=== PATIENT | male | born 1990 | race Caucasian/White ===

== ENCOUNTER → 2019-08-27 07:38 | Outpatient (BNVA) | payer MEDICAID, SELFPAY | PROVIDERS: Visit Provider Psychiatry & Neurology Psychiatry | DX: F31.9 Bipolar disorder, unspecified (principal); F17.200 Nicotine dependence, unspecified, uncomplicated; F10.21 Alcohol dependence, in remission; F15.21 Other stimulant dependence, in remission; F12.21 Cannabis dependence, in remission; F41.1 Generalized anxiety disorder | CPT/HCPCS: 99213 ==

== ENCOUNTER 2019-08-31 13:00 | Emergency (ER) | payer MEDICAID, SELFPAY ==
[2019-08-31 13:07] VITALS: BMI 277.5
[2019-08-31 13:09] VITALS: BP 119/82; PULSE 81; RESP 16; TEMP 36.6; O2SAT 98
--- NOTE | 2019-08-31 13:17 | ED_ITS ---
HPI - Dental/Oral General: Chief complaint: Dental/Oral Stated complaint: dental pain Time Seen by Provider: 08/31/19 13:03 History of Present Illness: HPI Narrative: Dental pain times few days MD Complaint: tooth pain Teeth map: 1. Onset (ago): day(s) Duration: constant Severity: moderate Associated symptoms: Denies fever(s) Review of Systems Const: Denies: fever(s), chills or body aches Eyes: Denies: change in vision or blurry vision ENMT: Reports: other (Dental pain); Denies: throat pain or nasal congestion Card: Denies: chest pain or dyspnea on exertion Resp: Denies: dyspnea, productive cough or non-productive cough GI: Denies: abdominal pain, nausea or vomiting : Denies: difficulty urinating Musc: Denies: extremity pain Skin/Breast: Denies: rash Neuro: Denies: headache(s) Psych: Denies: anxiety or depression Hilario/Lymph: Denies: easy bruising PFSH ED PFSH: Social History (Updated 07/30/19 @ 13:25 by Henry Rodriguez LPN) Smoking and tobacco status: current every day smoker cigarettes Packs smoked per day: 1 Years cigarettes smoked: 13 Quit status (tobacco): considering quitting Second hand smoke exposure: No Smoking risk assessment/counseling performed?: No Current gender identity: Male Physical Exam Const: COMMON NORMALS: no acute distress, average body habitus and patient oriented x3 HENMT: COMMON NORMALS: normocephalic HEAD & SCALP: normal to inspection and normocephalic FACE & SINUS: normal facial exam TEETH & GINGIVA IMAGES: 1. Eye: COMMON NORMALS: conjunctivae normal GENERAL EYE: appearance normal, both eyes and all related structures CONJUNCTIVA: Yes conjunctivae normal Neck/C-Spine: COMMON NORMALS: no JVD Chest: COMMONS NORMALS: normal inspection of the chest Resp: COMMON NORMALS: normal respiratory effort and clear to auscultation bilaterally AUSCULTATION: clear to auscultation bilaterally Cardio: COMMON NORMALS: no JVD, regular rate and regular rhythm RATE: regular rate RHYTHM: regular rhythm GI: COMMON NORMALS: Normal to inspection, nondistended, normoactive bowel sounds present Extremity: COMMON NORMALS: normal to inspection and full ROM Neuro: COMMON NORMALS: patient oriented x3 Course Vital Signs: Vital signs: Vital Signs Temperature 97.9 F 08/31/19 13:09 Pulse Rate 81 08/31/19 13:09 Respiratory Rate 16 08/31/19 13:09 Blood Pressure 119/82 08/31/19 13:09 Pulse Oximetry 98 08/31/19 13:09 Discharge Plan Discharge Prescriptions: No Action Invega Sustenna 117 mg/0.75 mL syringe 117 mg IM Q30D Qty: 0.75 RF: 2 mirtazapine [Remeron] 15 mg tablet 15 mg PO .HS Qty: 30 RF: 2 paliperidone [Invega] 3 mg tablet extended release 24hr 3 mg PO QAM Qty: 30 RF: 2 Coding Level of Care Code ED Cell Support Operator for Elías Arnold
[2019-08-31 13:26] VITALS: BP 125/85; PULSE 83; RESP 17; O2SAT 97
== END 2019-08-31 13:26 | disposition home or self-care (01) ==
LOC: ER 13:27
PROVIDERS: Emergency Provider Nurse Practitioner Family
DX: K08.89 Other specified disorders of teeth and supporting structures (principal); F17.210 Nicotine dependence, cigarettes, uncomplicated
CPT/HCPCS: 12345; 99281

== ENCOUNTER 2019-12-24 05:38 | Emergency (ER) | payer MEDICAID, SELFPAY ==
[2019-12-24 05:39] VITALS: BP 125/82; PULSE 105; RESP 24; TEMP 36.7; O2SAT 93; BMI 28.5
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
--- NOTE | 2019-12-24 06:22 | PC.NURSE ---
agree with this assessment
== END 2019-12-24 06:23 ==
PROVIDERS: Emergency Provider Family Medicine
DX: R46.89 Other symptoms and signs involving appearance and behavior (principal); K02.9 Dental caries, unspecified; F15.90 Other stimulant use, unspecified, uncomplicated; F17.210 Nicotine dependence, cigarettes, uncomplicated
CPT/HCPCS: 12345; 99281

== ENCOUNTER 2020-03-01 16:38 | Inpatient (IN) | payer MEDICAID, SELFPAY ==
[2020-03-01] VITALS (34 sets, daily range): BP systolic 107–142; BP diastolic 59–101; PULSE 59–97; RESP 12–22; TEMP 36.7; O2SAT 96–100; BMI 21.7
--- NOTE | 2020-03-01 16:47 | XRR_ITS ---
PROCEDURE INFORMATION: Exam: XR Chest, 1 View Exam date and time: 03/01/2020 4:57 PM Age: 29 years old Clinical indication: Device placement; Ett placement (vent status); Patient HX: Post et tube. 4 images; Additional info: Dyspnea/cough TECHNIQUE: Imaging protocol: XR of the chest Views: 1 view. COMPARISON: CR Chest 1 [place] [id number] 10/26/2018 9:43 PM FINDINGS: Tubes, catheters and devices: A nasogastric tube is present in the projection of the stomach. Lungs: Unremarkable. No consolidation. Pleural space: Unremarkable. No pleural effusion. No pneumothorax. Heart/Mediastinum: Unremarkable. No cardiomegaly. Bones/joints: Unremarkable. XR/XR chest 1V portable [id number] IMPRESSION: 1. Satisfactory position of the nasogastric tube. 2. No significant cardiopulmonary abnormality.
--- NOTE | 2020-03-01 16:47 | ECG_ITS ---
[facility] Test Date: 2020-03-01 Pat Name: Rubens Gregg Department: Room: Gender: Male Director Of Infection Control: : 1990 Requested By: Lior Joaquin Order Number: [id number] Pat MD: Bettye Mcduffie M.D. Measurements Intervals [place] Rate: 46 P: MO: QRS: 74 QRSD: 91 T: 62 QT: 439 QTc: 387 Interpretive Statements Ectopic atrial rhythm with intermittent sinus beats Compared to ECG 10/26/2018 21:13:55 Sinus rhythm no longer present Sinus arrhythmia no longer present Electronically Signed On 03-02-2020 23:39:55 CPO by Bettye Mcduffie M.D. [email or web address]
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
[2020-03-01 17:14] LABS: ABG PCO2 37.7 mmHg (35-45); ABG PH Result 7.36 (7.35-7.45); PO2 ABG 44.3 mmHg (80.0-100.0)
[2020-03-01 17:15] LABS: Arterial Blood Gas Hematocrit 43.4 % (42-52); Base Excess ABG -3.5 mmol/L (-2.0-2.0); Blood Gas Operator Identificat glc; Blood Gas Sample Site Radial, right; Carboxyhemoglobin 2.3 %THgb (0.4-20.1); HCO3 ABG 21.5 mmol/L (22-26); HGB O2 Sat 78.6 % (95-100); Oxygen Saturation ABG 81.1; Potassium Level - ABG 3.7 mmol/L (3.5-5.0); Total Hemoglobin 14.2 g/dL (14-18)
[2020-03-01 17:16] LABS: Blood Gas Allen Test Pos; Blood Gas Sample Type Arterial; Ionized Calcium Level - ABG 1.2 mmol/L (1.1-1.4); Methemoglobin 0.8 % (0.4-1.5); Oxygen Device VENT
[2020-03-01 17:27] LABS: Basophils % 0.4 %; Eosinophils # 0.1 10^3/uL (0.0-0.8); Eosinophils % 1.1 %; Lymphocytes # 3.6 10^3/uL (0.8-4.8); Lymphocytes % 42.3 %; Mean Corpuscular HGB Conc 32.6 g/dL (30.0-36.0); Mean Corpuscular Hemoglobin 30.5 pg (28.0-34.0); Mean Corpuscular Volume 93.7 fL (80-94); Mean Platelet Volume 10.1 fL (7.4-10.4); Monocytes # 0.6 10^3/uL (0.2-0.9); Monocytes % 6.7 %; Neutrophils # 4.16 10^3/uL (1.8-7.7); Neutrophils % 49.3 %; Nucleated Red Blood Cells % 0 %; Platelet Count 338 10^3/cmm (130-400); Red Blood Count 4.59 10^6/uL (4.1-5.3); Red Cell Distribution Width 13.4 % (12.1-15.1); White Blood Count 8.4 10^3/uL (4.0-10.0)
[2020-03-01] MEDS: succinylcholine 20 mg/mL SDV 10mL 100 MG IVP (17:27)
[2020-03-01] MEDS: vecuronium 10 mg SDV IVP ×2 (17:27→19:05)
[2020-03-01] MEDS: dextrose 50% syringe 50 mL (17:29)
[2020-03-01] MEDS: propofol 1,000 MG/100 ML INJ 8.7 MG IV (17:29)
[2020-03-01 17:41] LABS: Ketone (Acetest) Serum Negative (Negative)
[2020-03-01 18:01] LABS: Alanine Aminotransferase 19 U/L (0-41); Albumin Level 4.5 g/dL (3.5-5.2); Alcohol Level 45 mg/dL (0-10); Alkaline Phosphatase 63 IU/L (40-130); Blood Urea Nitrogen 8 mg/dL (6-20); Calcium 8.5 mg/dL (8.5-10.5); Carbon Dioxide 22 mmol/L (22-29); Chloride 104 mmol/L (98-107); Creatine Phosphokinase 104 U/L (39-308); Globulin 2.3 g/dL (1.3-4.6); Glomerular Filtration Rate 161.6 mL/min (90-130); Glucose 90 mg/dL (65-115); Osmolality Calculated 286 mOsm/kg (285-295); Sodium 139 mmol/L (136-145); Total Bilirubin 0.2 mg/dL (0.15-1.2); Total Protein 6.8 g/dL (6.6-8.7)
[2020-03-01 18:09] LABS: Creatinine Clr Calc Pharmacy 197.7238
[2020-03-01 18:10] LABS: Acetaminophen < 5.0 ug/mL (10-30); Salicylate < 0.3 mg/dL (3-10)
[2020-03-01 18:24] LABS: Anion Gap 16.5 (5-19); Aspartate Amino Transferase 20 U/L (0-40); Potassium 3.5 mmol/L (3.5-5.1)
[2020-03-01] MEDS: fentaNYL 50 mcg/mL INJ 2mL IVP (18:30)
[2020-03-01] MEDS: vecuronium 10 mg SDV 2 MG IVP (19:03)
[2020-03-01 19:11] LABS: Reflex Lactate Order REFLEX LACTIC ORDERD
[2020-03-01 19:28] LABS: Slide Review Slide Review Perform
[2020-03-01 19:53] LABS: Add Urine Microscopic? NO
[2020-03-01 20:10] LABS: Amphetamines Screen Urine Positive (Negative); Barbiturates Screen Urine Negative (Negative); Benzodiazepines Screen Urine Negative (Negative); Cocaine Screen Urine Negative (Negative); Opiate Screen Urine Negative (Negative); PCP Screen Urine Negative (Negative); THC Screen Urine Positive (Negative)
[2020-03-01 20:23] LABS: Bilirubin Urine Neg (Negative); Blood Urine Neg (Negative); Glucose Urine UA 2+ (Normal); Ketones Urine Negative (Negative); Leukocyte Esterase Urine Negative (Negative); Nitrate Urine Negative (Negative); Protein Urine Neg (Negative); Specific Gravity, Urine 1.015 (1.005-1.030); Urine Appearance Clear (CLEAR); Urine Color Yellow (Yellow); Urobilinogen Urine Norm (Negative); pH Urine 6 (5-7)
[2020-03-01 20:42] LABS: Lithium 0.1 mmol/L (0.6-1.2)
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
--- NOTE | 2020-03-01 21:11 | ECG_ITS ---
[facility] Test Date: 2020-03-01 Pat Name: Rubens Gregg Department: Room: ICU11 Gender: Male Change Manager: : 1990 Requested By: Cheryl Vieira Order Number: [id number] Pat MD: Bettye Mcduffie M.D. Measurements Intervals [place] Rate: 62 P: 66 MO: 160 QRS: 71 QRSD: 86 T: 52 QT: 413 QTc: 421 Interpretive Statements SINUS RHYTHM Compared to ECG 03/01/2020 17:03:58 Atrial fibrillation no longer present Electronically Signed On 03-02-2020 23:44:14 SCRAP HOOKER by Bettye Mcduffie M.D. [email or web address] countyKnetwit Inc.[facility] [email or web address]/store/NU/[id number] f
--- NOTE | 2020-03-01 22:00 | CTR_ITS ---
PROCEDURE INFORMATION: Exam: CT Neck With Contrast Exam date and time: 03/01/2020 10:02 PM Age: 29 years old Clinical indication: Mass, lump, or swelling in neck; Additional info: Right neck swelling after ej placement TECHNIQUE: Imaging protocol: Computed tomography images of the neck with intravenous contrast. Radiation optimization: All CT scans at this facility use at least one of these dose optimization techniques: automated exposure control; mA and/or kV adjustment per patient size (includes targeted exams where dose is matched to clinical indication); or iterative reconstruction. Contrast material: OMNI 300; Contrast volume: 95 ml; Contrast route: INTRAVENOUS (IV); COMPARISON: CT neck wo con [id number] 05/06/2018 7:48 PM RADIATION DOSE METRICS: Total DLP (mGy-cm): 620.6 FINDINGS: Nasopharynx: Unremarkable. Oropharynx: Unremarkable. No significant tonsillar enlargement. Hypopharynx: Unremarkable. Larynx: Unremarkable. Normal epiglottis. Retropharyngeal space: Unremarkable. Submandibular/Parotid glands: Normal. Glands are normal in size. Thyroid: Normal. No enlarged or calcified nodules. Lymph nodes: Unremarkable. No lymphadenopathy. Trachea: Visualized trachea is unremarkable. Lungs: Unremarkable as visualized. Bones/joints: Unremarkable. No acute fracture. Vasculature: Heterogeneous enhancement of both jugular veins is identified compatible with probable admixture of contrast. The arteries demonstrate appropriate enhancement. Soft tissues: There is subcutaneous emphysema right neck. There is edema of the subcutaneous fat right neck and supraclavicular region. No localized fluid collection such as a hematoma or abscess. There is fluid, gas and edema in the right sternocleidomastoid muscle. Other findings: No extravasation of contrast. CT/CT neck w con* [id number] IMPRESSION: Subcutaneous edema and subcutaneous emphysema right neck and right sternocleidomastoid muscle without well-defined fluid collection such as an abscess or hematoma. No extravasation of contrast. Radiation Dose CTDIVOL = (mGy): DLP = 620.6 (mGy-cm)
[2020-03-01] MEDS: iohexol 300 mg/mL 100 mL Btl IV (22:17)
[2020-03-01 22:19] LABS: Troponin(5th) Baseline 6 ng/L (0-15)
[2020-03-01 22:26] LABS: Magnesium 2.1 mg/dL (1.7-2.3); Thyroid Stimulating Hormone 5.58 uIU/mL (0.27-4.20)
[2020-03-01] MEDS: calcium gluconate 0.1 gm/mL 10% SDV 10mL 1 GM IVP (23:00)
[2020-03-01] MEDS: enoxaparin 40 mg/0.4 mL Syringe SUBCUT (23:00)
--- NOTE | 2020-03-01 23:06 | CTR_ITS ---
PROCEDURE INFORMATION: Exam: CT Chest Without Contrast; Diagnostic Exam date and time: 03/01/2020 12:01 AM Age: 29 years old Clinical indication: Other: Subcutaneous emphysema right side neck; Additional info: Sub cut emphysema TECHNIQUE: Imaging protocol: Diagnostic computed tomography of the chest without contrast. Radiation optimization: All CT scans at this facility use at least one of these dose optimization techniques: automated exposure control; mA and/or kV adjustment per patient size (includes targeted exams where dose is matched to clinical indication); or iterative reconstruction. COMPARISON: CR XR chest 1V portable [id number] 03/01/2020 4:40 PM RADIATION DOSE METRICS: Total DLP (mGy-cm): 618.47 FINDINGS: Lungs: There is mild symmetric ground-glass opacity in the lungs compatible with mild pneumonitis, edema and/or atelectasis. Pleural space: Unremarkable. No pneumothorax. No pleural effusion. Heart: Unremarkable. No cardiomegaly. No pericardial effusion. No pneumo mediastinum. Aorta: Unremarkable. No aortic aneurysm. Lymph nodes: Unremarkable. No enlarged lymph nodes. Bones/joints: Unremarkable. No acute fracture. Soft tissues: There is subcutaneous emphysema right neck. There is edema of the subcutaneous fat right neck and edema of the distal right sternocleidomastoid muscle. No localized fluid collection such as a hematoma or abscess. CT/CT chest [facility] [id number] IMPRESSION: 1. There is mild symmetric ground-glass opacity in the lungs compatible with mild pneumonitis, edema and/or atelectasis. 2. There is mild subcutaneous emphysema and soft tissue edema in the right neck and right sternocleidomastoid muscle. No fluid collection or abscess. No pneumothorax or pneumomediastinum.. Radiation Dose CTDIVOL = (mGy): DLP = 618.47 (mGy-cm)
--- NOTE | 2020-03-01 23:07 | PC.NURSE ---
Patient arrived to ICU from ED at 2223. Patient is alert and orientated. Ashley removed with 1100mL. Patient tolerated well. Lung sounds are clear, BS active pulses present. Call light within reach. Continue care.
[2020-03-02] VITALS (33 sets, daily range): BP systolic 88–141; BP diastolic 51–79; PULSE 54–88; RESP 4–20; TEMP 36.6–37.1; O2SAT 66–99
[2020-03-02] MEDS: dextrose 5%-ns + KCl 20 20 MEQ/1,000 ML BAG 75 MEQ IV (01:35)
[2020-03-02] MEDS: clindamycin 150 mg Capsule 600 MG PO ×2 (01:35→09:27)
--- NOTE | 2020-03-02 01:40 | PC.NURSE ---
Patient resting in bed with eyes closed. Refused EKG's ordered, but complied with fluids and antibiotics ordered. Call light within reach. Continue care.
--- NOTE | 2020-03-02 02:30 | PC.NURSE ---
Physician Notification Dr. Vieira notified of incomplete orders. Orders for 96 hour hold were placed and required 96 hr paperwork has not been filed.Received verbal orders he would come fill out the papers.
--- NOTE | 2020-03-02 03:09 | PC.NURSE ---
Patient pulled out IV that was in left hand. Patient refuses to let staff administer care and medications or insert new IV line. Patient now in ICU room with no IV access. Dr. Vieira on floor and aware of patients refusal of treatment. No new orders. Continue care.
--- NOTE | 2020-03-02 04:15 | PC.NURSE ---
Physician Notified Contacted Dr. Vieira at this time regarding 96hr paperwork to be completed. No new orders at this time.
--- NOTE | 2020-03-02 04:40 | PC.NURSE ---
Patient got up to use restroom and pulled off all telemetry patches and leads. Non compliant.
[2020-03-02 05:54] LABS: Basophils % 0.3 %; Eosinophils # 0.1 10^3/uL (0.0-0.8); Eosinophils % 1.3 %; Hematocrit 41.6 % (42.0-52.0); Hemoglobin 13.6 g/dL (11.7-16.6); Lymphocytes # 3.3 10^3/uL (0.8-4.8); Lymphocytes % 36.9 %; Mean Corpuscular HGB Conc 32.7 g/dL (30.0-36.0); Mean Corpuscular Hemoglobin 30.8 pg (28.0-34.0); Mean Corpuscular Volume 94.3 fL (80-94); Mean Platelet Volume 9.1 fL (7.4-10.4); Monocytes # 0.8 10^3/uL (0.2-0.9); Monocytes % 8.5 %; Neutrophils # 4.74 10^3/uL (1.8-7.7); Neutrophils % 52.8 %; Nucleated Red Blood Cells % 0 %; Platelet Count 385 10^3/cmm (130-400); Red Blood Count 4.41 10^6/uL (4.1-5.3); Red Cell Distribution Width 13.7 % (12.1-15.1)
--- NOTE | 2020-03-02 05:56 | PC.NURSE ---
Patient still non compliant with all cares. No monitors in place due to patient removing them. Continue care.
[2020-03-02 06:17] LABS: Alanine Aminotransferase 17 U/L (0-41); Albumin Level 3.9 g/dL (3.5-5.2); Alkaline Phosphatase 61 IU/L (40-130); Aspartate Amino Transferase 15 U/L (0-40); Blood Urea Nitrogen 9 mg/dL (6-20); Carbon Dioxide 24 mmol/L (22-29); Chloride 106 mmol/L (98-107); Globulin 2.2 g/dL (1.3-4.6); Glomerular Filtration Rate 135.3 mL/min (90-130); Glucose 84 mg/dL (65-115); Osmolality Calculated 284 mOsm/kg (285-295); Phosphorus 3.3 mg/dL (2.5-4.5); Sodium 138 mmol/L (136-145); Total Bilirubin 0.3 mg/dL (0.15-1.2); Total Protein 6.1 g/dL (6.6-8.7)
[2020-03-02 06:48] LABS: Troponin 5 6HR Delta 0 ng/L (0-12)
--- NOTE | 2020-03-02 08:56 | PC.NURSE ---
POISON CONTROL CONSULT [place] Per poison control (Sha[place]) Depending on whether lithium that was ingested was Extended release vs Immediate release. Peak for Immediate release is 1-3 hours. Extended peaks from 3-7 hours and up to 17+ hours based off of amount take. 1/2 life 17-27 hours, in OD can be 32-58 hours. Symptoms more important than serum levels in assessing toxicity levels of lithium Evidenced by confusion, bradycardia, hypotension, difficulty walking. Recommend checking lithium now and again in 4-6 hours. Watch serum sodium and potassium as well as kidney function with BUN and creatinine. No NSAIDs, david inhibitors, diuretics. Maintain robust urine flow as it is completely excreted by the kidney. Klonidine Per poison control (Shauna) depending on release peak an be 1-3 hours for immediate release and 6 hours to extended release. 1/2 life 12-24 hours depending on version. Drowsiness, hypertension, tachycardia, resp depression. If resp depression noted can use narcan. Calling Curly now with updated poison control recommendation.
--- NOTE | 2020-03-02 09:06 | PC.NURSE ---
Dr. Rawls called and notified of consult with Poison control and no orders were given. Dr. Rawls states he had a second [employer] ordered from the blood drawn at 0535 this morning and if it is improving or not significantly worse then he may be up for transfer, if levels are significantly higher then we will draw again at that time.
[2020-03-02] MEDS: multivitamin therapeutic Tablet 1 TAB PO (09:27)
[2020-03-02] MEDS: thiamine 100 mg Tablet PO (09:27)
[2020-03-02] MEDS: folic acid 1 mg Tablet PO (09:27)
[2020-03-02 11:51] LABS: Lithium 0.1 mmol/L (0.6-1.2)
--- NOTE | 2020-03-02 11:54 | P.PN_ITS ---
Subjective Subjective: Interval history: History and physical reviewed. Patient admits to overdose in suicide attempt with lithium and clonidine. Not sure how much he took. Medications: Reviewed: Yes Vitals/I&O/Wt Last Vital Signs Temp 98.1 F 03/01/20 16:38 Pulse 68 03/02/20 04:30 Resp 18 03/02/20 10:00 BP 108/72 03/02/20 04:20 Pulse Ox 66 L 03/02/20 08:31 03/01/20 03/02/20 03/02/20 22:59 06:59 14:59 Intake Total 128.720 / 128.720 240 / 240 Output Total 1100 / 1100 Balance 128.720 / 128.720 -1100 / -971.280 240 / 240 Weight last 48 hrs Weight 72.575 kg Physical Exam Narrative: EXAM NARRATIVE: General exam is no apparent distress Neck demonstrates slight edema right side of neck Cardiovascular regular rhythm without murmur Lungs clear Abdomen is soft nontender with positive bowel sounds Extremities no cyanosis clubbing or edema Urinary Catheter Management^: Ashley: Cath Placed During This Visit: yes Urinary Catheter Date of Insertion: 03/01/20 Urinary Catheter Time of Insertion: 17:06 Data : 03/02/20 05:35 03/02/20 05:35 A&P Assessment and plan (1) Drug overdose: With lithium and clonidine. No current adverse effects. Repeat lithium level unchanged. No current bradycardia. Status: Acute (2) Suicidal ideation: Transfer to psychiatry 96-hour hold Status: Acute (3) Subcutaneous emphysema: Secondary to IJ attempt prior to arrival at hospital. No evidence of abscess or hematoma. No evidence of infection. No need for clindamycin at this point. Discontinue and monitor He is eating without difficulty Status: Acute (4) Dental caries: Status: Acute Additional A&P Information Respiratory failure, resolved. Extubated shortly after intubation Full code Transfer to neuropsychiatric unit Attestations Medical Necessity Statement*: Needs continued hospitalization for evaluation of suicide attempt. Coding Level of Care Code Acute Eng[employer] for Elías Fwbandar Diagnoses Drug overdose T50.901A Suicidal ideation R45.851 Subcutaneous emphysema T79.7XXA Dental caries K02.9
--- NOTE | 2020-03-02 12:33 | PC.SLP ---
Pt refused MBS.
--- NOTE | 2020-03-02 12:41 | PC.NURSE ---
transfer Report called to Alisia Ye RN.
[2020-03-03 06:00] VITALS: RESP 17
[2020-03-03] MEDS: folic acid 1 mg Tablet PO (08:01)
[2020-03-03] MEDS: multivitamin therapeutic Tablet 1 TAB PO (08:01)
[2020-03-03] MEDS: thiamine 100 mg Tablet PO (08:01)
[2020-03-03] MEDS: nicotine 2 mg Gum BUCCAL ×3 (10:14→17:57)
[2020-03-03 14:00] VITALS: RESP 18
[2020-03-03] MEDS: paliperidone palmitate 156 mg Syringe IM (15:30)
--- NOTE | 2020-03-03 15:52 | PC.RESP ---
Smoking Cessation information sent to patient.
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
[2020-03-03 17:10] VITALS: RESP 17
--- NOTE | 2020-03-03 17:43 | PC.NURSE ---
Medicaid ride scheduled @ 5064 Trip number [id number] [employer] [facility] number [id number]
== END 2020-03-03 21:17 | disposition home or self-care (01) | DRG 917 ==
LOC: ER 20:53 → ICU 21:35 → NP 03-02 12:52
PROVIDERS: Family Medicine; Internal Medicine; Admitting Provider Internal Medicine; Emergency Provider Emergency Medicine; Visit Provider Psychiatry & Neurology Psychiatry
DX: T46.5X2A Poisoning by other antihypertensive drugs, intentional self-harm, initial encounter (principal); J96.90 Respiratory failure, unspecified, unspecified whether with hypoxia or hypercapnia; F15.20 Other stimulant dependence, uncomplicated; R45.851 Suicidal ideations; T56.892A Toxic effect of other metals, intentional self-harm, initial encounter; F20.9 Schizophrenia, unspecified; E87.6 Hypokalemia; F12.20 Cannabis dependence, uncomplicated; F10.20 Alcohol dependence, uncomplicated; F32.9 Major depressive disorder, single episode, unspecified; F17.210 Nicotine dependence, cigarettes, uncomplicated; T81.82XA Emphysema (subcutaneous) resulting from a procedure, initial encounter; Y82.8 Other medical devices associated with adverse incidents; K02.9 Dental caries, unspecified; Z91.5 Personal history of self-harm
CPT/HCPCS: 12345; 31500; 36415; 36600; 51702; 70491; 71045; 71250; 80051; 80053; 80178; 80306; 80307; 81003; 82009; 82330; 82550; 82805; 83605; 83735; 84100; 84443; 84484; 85025; 93005; 94002; 94799; 96372; 99285; J0330; J0610; J1650; J2704; J3010; J3411; J3490; Q9967

== ENCOUNTER 2020-06-05 16:05 | Emergency (ER) | payer MEDICAID, SELFPAY ==
[2020-06-05 16:10] VITALS: BP 131/79; PULSE 82; RESP 16; TEMP 36.9; O2SAT 95; BMI 25.0
--- NOTE | 2020-06-05 16:17 | ECG_ITS ---
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 Measurements Intervals Graham Rate: 65 P: 60 DC: 144 QRS: 64 QRSD: 88 T: 60 QT: 373 QTc: 390 Interpretive Statements SINUS RHYTHM Compared to ECG 03/01/2020 21:30:23 No significant changes Electronically Signed On 06-05-2020 20:35:15 CDT by Bettye Mcduffie M.D. [email or web address] [id number]
--- NOTE | 2020-06-05 16:17 | XRR_ITS ---
PROCEDURE INFORMATION: Exam: XR Chest Exam date and time: 06/05/2020 4:21 PM Age: 29 years old Clinical indication: Chest pain; Additional info: Cp TECHNIQUE: Imaging protocol: XR of the chest Views: 1 view. Total images: 1 COMPARISON: CT chest con [id number] 03/01/2020 11:57 PM FINDINGS: Lungs: Unremarkable. No consolidation. Pleural spaces: Unremarkable. No pleural effusion. No pneumothorax. Heart/Mediastinum: Unremarkable. No cardiomegaly. Bones/joints: Unremarkable. XR/XR chest 1V portable [id number] IMPRESSION: No acute findings.
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
[2020-06-05 16:31] VITALS: O2SAT 97
[2020-06-05] MEDS: famotidine 20 mg/2 mL INJ 40 MG IVP (16:39)
[2020-06-05] MEDS: ondansetron 2 mg/ML SDV 2 mL 4 MG IVP (16:39)
[2020-06-05 16:57] LABS: Add Urine Microscopic? NO
[2020-06-05 17:09] LABS: Basophils % 0.1 %; Hematocrit 43.6 % (42.0-52.0); Hemoglobin 14.5 g/dL (11.7-16.6); Lymphocytes # 0.3 10^3/uL (0.8-4.8); Mean Corpuscular HGB Conc 33.3 g/dL (30.0-36.0); Mean Corpuscular Hemoglobin 30.9 pg (28.0-34.0); Mean Corpuscular Volume 92.8 fL (80-94); Mean Platelet Volume 9.5 fL (7.4-10.4); Monocytes # 0.5 10^3/uL (0.2-0.9); Monocytes % 3.4 %; Neutrophils # 13.88 10^3/uL (1.8-7.7); Neutrophils % 94.2 %; Nucleated Red Blood Cells % 0 %; Platelet Count 393 10^3/cmm (130-400); Red Cell Distribution Width 12.9 % (12.1-15.1); White Blood Count 14.7 10^3/uL (4.0-10.0)
[2020-06-05 17:16] LABS: D Dimer 0.29 ug/mIFEU (0-0.59); Urine Appearance Clear (CLEAR); Urine Color Yellow (Yellow); pH Urine 8 (5-7)
[2020-06-05 17:17] LABS: Bilirubin Urine Neg (Negative); Blood Urine Neg (Negative); Glucose Urine UA Norm (Normal); Ketones Urine Negative (Negative); Leukocyte Esterase Urine Negative (Negative); Nitrate Urine Negative (Negative); Protein Urine Neg (Negative); Specific Gravity, Urine 1.015 (1.005-1.030); Sulfosalicylic Acid Urine Negative (Negative); Urobilinogen Urine Norm (Negative)
[2020-06-05] MEDS: lidocaine 2% viscous 15 ML, aluminum-mag hydrox-simethicon 30 ML, sucralfate oral liq 1 GM PO (17:22)
[2020-06-05 17:24] VITALS: BP 127/75; PULSE 79; O2SAT 99
[2020-06-05 17:26] LABS: Lactate (Lactic Acid level) 1.9 mmol/L (0.5-2.2)
[2020-06-05 17:27] LABS: Alanine Aminotransferase 10 U/L (0-41); Albumin Level 3.7 g/dL (3.5-5.2); Alkaline Phosphatase 52 IU/L (40-130); Anion Gap 13.2 (5-19); Aspartate Amino Transferase 11 U/L (0-40); Blood Urea Nitrogen 18 mg/dL (6-20); Calcium 8.3 mg/dL (8.5-10.5); Carbon Dioxide 19 mmol/L (22-29); Chloride 105 mmol/L (98-107); Creatine Phosphokinase 84 U/L (39-308); Globulin 2.1 g/dL (1.3-4.6); Glomerular Filtration Rate 199.5 mL/min (90-130); Glucose 88 mg/dL (65-115); Lipase 45 U/L (13-60); Osmolality Calculated 279 mOsm/kg (285-295); Potassium 3.2 mmol/L (3.5-5.1); Sodium 134 mmol/L (136-145); Total Bilirubin 0.8 mg/dL (0.15-1.2); Total Protein 5.8 g/dL (6.6-8.7)
[2020-06-05 17:35] LABS: Alcohol Level < 10 mg/dL (0-10)
[2020-06-05 19:42] VITALS: RESP 18
--- NOTE | 2020-06-05 19:44 | PC.NURSE ---
patient refused vital signs to be taken
== END 2020-06-05 19:43 | disposition home or self-care (01) ==
PROVIDERS: Nurse Practitioner Family; Emergency Provider Physician Assistant
DX: K29.00 Acute gastritis without bleeding (principal); F17.210 Nicotine dependence, cigarettes, uncomplicated
CPT/HCPCS: 71045; 80053; 80307; 81003; 82550; 83605; 83690; 84484; 85025; 85378; 93005; 96374; 96375; 99284; J2405; J3490

== ENCOUNTER 2020-06-05 21:48 | Emergency (ER) | payer MEDICAID, SELFPAY ==
[2020-06-05 23:27] VITALS: BP 115/71; PULSE 104; RESP 18; TEMP 36.9; O2SAT 99; BMI 25.0
--- NOTE | 2020-06-06 02:51 | CTR_ITS ---
PROCEDURE INFORMATION: Exam: CT Abdomen And Pelvis With Contrast Exam date and time: 06/06/2020 3:14 AM Age: 29 years old Clinical indication: Abdominal pain; Patient HX: C/O epigastric pain; Additional info: Abd pain TECHNIQUE: Imaging protocol: Computed tomography of the abdomen and pelvis with contrast. Radiation optimization: All CT scans at this facility use at least one of these dose optimization techniques: automated exposure control; mA and/or kV adjustment per patient size (includes targeted exams where dose is matched to clinical indication); or iterative reconstruction. Contrast material: OMNI 300; Contrast volume: 95 ml; Contrast route: INTRAVENOUS (IV); COMPARISON: No relevant prior studies available. RADIATION DOSE METRICS: Total DLP (mGy-cm): 1252.83 FINDINGS: Liver: Normal. No mass. Gallbladder and bile ducts: Normal. No calcified stones. No ductal dilation. Pancreas: Normal. No ductal dilation. Spleen: Normal. No splenomegaly. Adrenal glands: Normal. No mass. Kidneys and ureters: Normal. No hydronephrosis. Stomach and bowel: Nondilated small bowel loops are present, findings that could represent mild ileus. Appendix: The appendix is visualized and is normal in configuration. Intraperitoneal space: Unremarkable. No free air. No significant fluid collection. Vasculature: Unremarkable. No abdominal aortic aneurysm. Lymph nodes: Unremarkable. No enlarged lymph nodes. Urinary bladder: Unremarkable as visualized. Reproductive: Unremarkable as visualized. Bones/joints: Unremarkable. No acute fracture. Soft tissues: Unremarkable. CT/CT abdomen pelvis w con* [id number] IMPRESSION: Nondilated fluid-filled small bowel loops are present, findings that could represent mild ileus. Radiation Dose CTDIVOL = (mGy): DLP = 1252.83 (mGy-cm)
[2020-06-06] MEDS: iohexol 300 mg/mL 100 mL Btl IV (03:41)
[2020-06-06 04:06] VITALS: BP 155/72; PULSE 62; RESP 18; O2SAT 98
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
[2020-06-06] MEDS: mineral oil 30 mL UDC PO (04:43)
[2020-06-06] MEDS: magnesium hydroxide 30 mL UDC PO (04:43)
[2020-06-06] MEDS: lactulose oral liq 20 gm/30 mL UDC 30 GM PO (04:44)
[2020-06-06 04:48] VITALS: PULSE 72; RESP 18; O2SAT 98
== END 2020-06-06 04:49 | disposition home or self-care (01) ==
PROVIDERS: Emergency Provider Emergency Medicine
DX: K29.00 Acute gastritis without bleeding (principal); K56.7 Ileus, unspecified; F17.210 Nicotine dependence, cigarettes, uncomplicated
CPT/HCPCS: 74177; 99283; Q9967

== ENCOUNTER 2020-06-25 18:18 | Observation (INO) | payer MEDICAID, SELFPAY ==
[2020-06-25 18:23] VITALS: BP 128/73; PULSE 115; RESP 18; TEMP 36.6; O2SAT 97; BMI 24.4
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
[2020-06-25 19:44] LABS: Basophils % 0.3 %; Eosinophils # 0.1 10^3/uL (0.0-0.8); Hemoglobin 13.6 g/dL (11.7-16.6); Lymphocytes # 4.8 10^3/uL (0.8-4.8); Lymphocytes % 48.8 %; Mean Corpuscular HGB Conc 32.4 g/dL (30.0-36.0); Mean Corpuscular Hemoglobin 30.1 pg (28.0-34.0); Mean Corpuscular Volume 92.9 fL (80-94); Monocytes # 0.5 10^3/uL (0.2-0.9); Monocytes % 5.3 %; Neutrophils # 4.38 10^3/uL (1.8-7.7); Neutrophils % 44.3 %; Nucleated Red Blood Cells % 0 %; Platelet Count 480 10^3/cmm (130-400); Red Blood Count 4.52 10^6/uL (4.1-5.3); Red Cell Distribution Width 12.8 % (12.1-15.1); White Blood Count 9.9 10^3/uL (4.0-10.0)
[2020-06-25 19:58] LABS: Amphetamines Screen Urine Positive (Negative); Barbiturates Screen Urine Negative (Negative); Benzodiazepines Screen Urine Negative (Negative); Cocaine Screen Urine Negative (Negative); Opiate Screen Urine Negative (Negative); PCP Screen Urine Negative (Negative); THC Screen Urine Positive (Negative)
[2020-06-25 20:03] LABS: Alanine Aminotransferase 14 U/L (0-41); Albumin Level 4.1 g/dL (3.5-5.2); Alcohol Level 105 mg/dL (0-10); Alkaline Phosphatase 65 IU/L (40-130); Anion Gap 17.6 (5-19); Aspartate Amino Transferase 20 U/L (0-40); Blood Urea Nitrogen 18 mg/dL (6-20); Calcium 8.3 mg/dL (8.5-10.5); Carbon Dioxide 21 mmol/L (22-29); Chloride 108 mmol/L (98-107); Globulin 2.6 g/dL (1.3-4.6); Glomerular Filtration Rate 80.3 mL/min (90-130); Glucose 78 mg/dL (65-115); Osmolality Calculated 297 mOsm/kg (285-295); Potassium 3.6 mmol/L (3.5-5.1); Sodium 143 mmol/L (136-145); Total Bilirubin 0.2 mg/dL (0.15-1.2); Total Protein 6.7 g/dL (6.6-8.7)
[2020-06-25 20:04] LABS: Acetaminophen < 5.0 ug/mL (10-30); Salicylate < 0.3 mg/dL (3-10)
[2020-06-25 20:54] VITALS: BP 123/73; PULSE 81; RESP 17; TEMP 36.6; O2SAT 95
[2020-06-25 21:11] VITALS: BP 109/72; PULSE 95; RESP 19; TEMP 36.6; O2SAT 97
[2020-06-25 21:20] VITALS: BP 109/72; PULSE 95; RESP 19; TEMP 36.6; O2SAT 97
--- NOTE | 2020-06-26 02:27 | PC.NURSE ---
Skin assessment revealed no wounds or injuries.
[2020-06-26 06:00] VITALS: RESP 17
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
[2020-06-26 17:41] VITALS: RESP 17
--- NOTE | 2020-06-28 15:54 | PC.RESP ---
Smoking Cessation information sent to patient.
== END 2020-06-26 14:30 ==
LOC: ER 18:46 → NP 21:11
PROVIDERS: Admitting Provider Psychiatry & Neurology Psychiatry; Emergency Provider Physician Assistant; Visit Provider Psychiatry & Neurology Psychiatry
DX: R45.851 Suicidal ideations (principal); F17.210 Nicotine dependence, cigarettes, uncomplicated; F15.10 Other stimulant abuse, uncomplicated; F12.10 Cannabis abuse, uncomplicated; F10.10 Alcohol abuse, uncomplicated
CPT/HCPCS: 80053; 80306; 80307; 85025; 99285; G0378

== ENCOUNTER 2023-10-25 23:04 | Inpatient (IN) | payer SELFPAY ==
[2023-10-25 23:09] VITALS: BP 136/85; PULSE 96; RESP 16; TEMP 36.7; O2SAT 97; BMI 25.7
[2023-10-25 23:44] LABS: Charge for UA Resulting for Rev
[2023-10-25 23:47] LABS: Bilirubin Urine Negative (Negative); Blood Urine Negative (Negative); Glucose Urine UA Negative (Normal); Ketones Urine Negative (Negative); Leukocyte Esterase Urine Negative (Negative); Nitrate Urine Negative (Negative); Protein Urine Negative (Negative); Specific Gravity, Urine 1.018 (1.005-1.030); Urine Appearance Clear (CLEAR); Urine Color Yellow (Yellow)
[2023-10-25 23:48] VITALS: BP 136/85; PULSE 95; RESP 16; O2SAT 98
[2023-10-25 23:52] LABS: Bacteria Urine None Seen /hpf; RBC Urine 0-2 /hpf (0-2); Squamous Epithelial Cell Urine 0-5 /hpf (0-5); WBC Urine 0-5 /hpf (0-5)
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
[2023-10-25 23:54] LABS: Amphetamines Screen Urine Negative (Negative); Barbiturates Screen Urine Negative (Negative); Benzodiazepines Screen Urine Negative (Negative); Cocaine Screen Urine Negative (Negative); Opiate Screen Urine Negative (Negative); PCP Screen Urine Negative (Negative); THC Screen Urine Positive (Negative)
[2023-10-25 23:57] LABS: Basophils % 0.2 %; Eosinophils # 0.2 10^3/uL (0.0-0.8); Eosinophils % 1.6 %; Hematocrit 40.7 % (37-53); Lymphocytes # 3.4 10^3/uL (0.8-4.8); Lymphocytes % 32.9 %; Mean Corpuscular HGB Conc 34.2 g/dL (30-55); Mean Corpuscular Hemoglobin 30.2 pg (27-33); Mean Corpuscular Volume 88.3 fl (82-101); Mean Platelet Volume 9.1 fL (7.4-10.4); Monocytes # 0.6 10^3/uL (0.2-0.9); Monocytes % 5.4 %; Neutrophils # 6.18 10^3/uL (1.8-7.7); Neutrophils % 59.6 %; Nucleated Red Blood Cells % 0 %; Platelet Count 477 10^3/cmm (157-399); Red Blood Count 4.61 10^6/uL (3.85-5.65); Red Cell Distribution Width 12.7 % (12.1-15.1); White Blood Count 10.37 10^3/uL (3.29-11.43)
[2023-10-26 00:21] LABS: Alanine Aminotransferase 17 U/L (0-41); Albumin Level 4.3 g/dL (3.5-5.2); Alkaline Phosphatase 59 U/L (40-130); Anion Gap 16.3 (5-19); Aspartate Amino Transferase 14 U/L (0-40); Blood Urea Nitrogen 18 mg/dL (6-20); Calcium 9.4 mg/dL (8.5-10.5); Carbon Dioxide 22 mmol/L (22-29); Chloride 106 mmol/L (98-107); Creatinine Clr Calc Pharmacy 122.6753; Globulin 2.5 g/dL (1.3-4.6); Glomerular Filtration Rate 87.2 mL/min (90-130); Glucose 142 mg/dL (65-115); Osmolality Calculated 294 mOsm/kg (285-295); Potassium 4.3 mmol/L (3.5-5.1); Sodium 140 mmol/L (136-145); Total Bilirubin 0.2 mg/dL (0.15-1.2); Total Protein 6.8 g/dL (6.6-8.7)
[2023-10-26 00:28] LABS: Acetaminophen < 5.0 ug/mL (10-30); Alcohol Level < 10 mg/dL (0-10); Salicylate < 0.3 mg/dL (3-10)
[2023-10-26 01:50] VITALS: BP 117/83; PULSE 87; RESP 14; O2SAT 96
[2023-10-26 03:55] VITALS: BP 129/77; PULSE 101; RESP 18; TEMP 36.6; O2SAT 95
[2023-10-26 06:00] VITALS: BP 102/60; PULSE 76; RESP 16; TEMP 37; O2SAT 94
[2023-10-26] MEDS: nicotine 2 mg Gum BUCCAL ×3 (08:33→15:54)
[2023-10-26] MEDS: ibuprofen 600 mg Tablet PO (11:26)
[2023-10-26 14:00] VITALS: BP 130/81; PULSE 54; RESP 16; TEMP 36.6; O2SAT 98
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
[2023-10-26 17:12] VITALS: BP 128/75; PULSE 55; RESP 16; TEMP 36.6; O2SAT 97
[2023-10-26] MEDS: nicotine 4 mg lozenge MUCOUS MEM (18:54)
[2023-10-26] MEDS: hyDROXYzine 25 mg Capsule 50 MG PO (20:15)
[2023-10-26] MEDS: trazodone 50 mg Tablet PO (20:15)
[2023-10-26 20:20] VITALS: BP 127/77; PULSE 114; RESP 18; TEMP 36.8; O2SAT 98
[2023-10-27 07:52] VITALS: BP 117/81; PULSE 57; RESP 16; O2SAT 98
[2023-10-27] MEDS: nicotine 4 mg lozenge MUCOUS MEM (09:43)
--- NOTE | 2023-10-27 10:07 | P.NPUDS_ITS ---
Diagnoses at Discharge Discharge Diagnosis (1) Amphetamine use disorder, severe, in early remission, dependence: Status: Acute (2) Polysubstance abuse: Status: Acute (3) Depression: Status: Acute Qualifiers: Depression Type: unspecified Qualified Code(s): F32.A - Depression, unspecified (4) Suicidal ideation: Status: Resolved (5) Adjustment disorder with mixed disturbance of emotions and conduct: Status: Acute (6) History of bipolar disorder: Status: Acute Reason for Visit Reason for Visit: MHE Involuntary Hold Information 96 Hour Hold: 96 Hour Involuntary Admission: No Discharge Data Studies Completed and Pending: Laboratory Results WBC 10.37 10^3/uL (3. 29-11.43) 10/25/23 23:49 RBC 4.61 10^6/uL (3.8 5-5.65) 10/25/23 23:49 Hgb 13.90 g/dL (11.27 -16.99) 10/25/23 23:49 Hct 40.7 % (37-53) 10/25/23 23:49 MCV 88.3 fl (82-101) 10/25/23 23:49 MCH 30.2 pg (27-33) 10/25/23 23:49 MCHC 34.2 g/dL (30-55) 10/25/23 23:49 RDW 12.7 % (12.1-15.1 ) 10/25/23 23:49 Plt Count 477 10^3/cmm (157 -399) H 10/25/23 23:49 MPV 9.1 fL (7.4-10.4) 10/25/23 23:49 Neut % (Auto) 59.6 % 10/25/23 23:49 Lymph % (Auto) 32.9 % 10/25/23 23:49 [place] % (Auto) 5.4 % 10/25/23 23:49 Eos % (Auto) 1.6 % 10/25/23 23:49 Baso % (Auto) 0.2 % 10/25/23 23:49 Neut # (Auto) 6.18 10^3/uL (1.8 -7.7) 10/25/23 23:49 Lymph # (Auto) 3.4 10^3/uL (0.8- 4.8) 10/25/23 23:49 [place] # (Auto) 0.6 10^3/uL (0.2- 0.9) 10/25/23 23:49 Eos # (Auto) 0.2 10^3/uL (0.0- 0.8) 10/25/23 23:49 Baso # (Auto) 0.0 10^3/uL (0.0- 0.1) 10/25/23 23:49 Nucleated RBC % (a uto) 0 % 10/25/23 23:49 Nucleated RBCs # 0.0 /100WBC 10/25/23 23:49 Sodium 140 mmol/L (136-1 45) 10/25/23 23:49 Potassium 4.3 mmol/L (3.5-5 .1) 10/25/23 23:49 Chloride 106 mmol/L (98-10 7) 10/25/23 23:49 Carbon Dioxide 22 mmol/L (22-29) 10/25/23 23:49 Anion Gap 16.3 (5-19) 10/25/23 23:49 BUN 18 mg/dL (6-20) 10/25/23 23:49 Creatinine 1.0 mg/dL (0.7-1. 2) 10/25/23 23:49 GFR Calculation 87.2 mL/min (90-1 30) L 10/25/23 23:49 Glucose 142 mg/dL (65-115 ) H 10/25/23 23:49 Calculated Osmolal ity 294 mOsm/kg (285- 295) 10/25/23 23:49 Calcium 9.4 mg/dL (8.5-10 .5) 10/25/23 23:49 Total Bilirubin 0.2 mg/dL (0.15-1 .2) 10/25/23 23:49 AST 14 U/L (0-40) 10/25/23 23:49 ALT 17 U/L (0-41) 10/25/23 23:49 Alkaline Phosphata se 59 U/L (40-130) 10/25/23 23:49 Total Protein 6.8 g/dL (6.6-8.7 ) 10/25/23 23:49 Albumin 4.3 g/dL (3.5-5.2 ) 10/25/23 23:49 Globulin 2.5 g/dL (1.3-4.6 ) 10/25/23 23:49 Urine Color Yellow (Yellow) 10/25/23 23:17 Urine Appearance Clear (CLEAR) 10/25/23 23:17 Urine pH 6.0 (5-7) 10/25/23 23:17 Ur Specific Gravit y 1.018 (1.005-1.0 30) 10/25/23 23:17 Urine Protein Negative (Negati ve) 10/25/23 23:17 Urine Glucose (UA) Negative (Normal ) 10/25/23 23:17 Urine Ketones Negative (Negati ve) 10/25/23 23:17 Urine Blood Negative (Negati ve) 10/25/23 23:17 Urine Nitrate Negative (Negati ve) 10/25/23 23:17 Urine Bilirubin Negative (Negati ve) 10/25/23 23:17 Urine Urobilinogen 1.0 mg/dL (Negati ve) 10/25/23 23:17 Ur Leukocyte Cielo ase Negative (Negati ve) 10/25/23 23:17 Urine RBC 0-2 /hpf (0-2) 10/25/23 23:17 Urine WBC 0-5 /hpf (0-5) 10/25/23 23:17 Ur Squamous Epith Cells 0-5 /hpf (0-5) 10/25/23 23:17 Amorphous Sediment Not Reportable 10/25/23 23:17 Urine Bacteria None seen /hpf (N ONE) 10/25/23 23:17 Hyaline Casts 0.40 /lpf 10/25/23 23:17 Salicylates < 0.3 mg/dL (3-10 ) L 10/25/23 23:49 Urine Opiates Scre en Negative ng/mL (N egative) 10/25/23 23:17 Acetaminophen < 5.0 ug/mL (10-3 0) L 10/25/23 23:49 Ur Barbiturates Sc reen Negative ng/mL (N egative) 10/25/23 23:17 Ur Phencyclidine S crn Negative ng/mL (N egative) 10/25/23 23:17 Ur Amphetamines Sc reen Negative ng/mL (N egative) 10/25/23 23:17 U Benzodiazepines Scrn Negative ng/mL (N egative) 10/25/23 23:17 Urine Cocaine Scre en Negative ng/mL (N egative) 10/25/23 23:17 U Marijuana (THC) Screen Positive ng/mL (N egative) H 10/25/23 23:17 Ethyl Alcohol < 10 mg/dL (0-10) 10/25/23 23:49 Vitals: Last Vital Signs Temp 98.2 F 10/26/23 20:20 Pulse 57 L 10/27/23 07:52 Resp 16 10/27/23 07:52 BP 117/81 10/27/23 07:52 Pulse Ox 98 10/27/23 07:52 O2 Del Method Room Air 10/27/23 07:52 Discharge Plan Discharge Patient Disposition: Home Condition: Stable Prescriptions: No Action No Known Home Medications Discharge Orders: Discharge Order (Routine); Ordered 10/27/23 Ordered By: Sarbjit Briseno Referrals: [facility] [Other] (Walk in Sunday through Sunday 8:00 AM to 4:00 PM. ) Discharge Diet: Regular Discharge Activity: Resume usual activity Patient Instructions: Depression, Bipolar Disorder (GEN), Opioid Safety Discharge Attestations NPU Time Spent in Discharge Care*: less than 30 min Specific Discharge Activities: Specific discharge activities: educating patient, discussing with pillowcase turner/social workers/dc planners and documenting/other paperwork Coding Level of Care Code Acute Code for [facility] Diagnoses Amphetamine use disorder, severe, in early remission, dependence F15.21 Polysubstance abuse F19.10 Depression F32.A Depression Type: unspecified Suicidal ideation R45.851 Adjustment disorder with mixed disturbance of emotions and conduct F43.25 History of bipolar disorder Z86.59
[2023-10-27 10:13] VITALS: BP 117/81; PULSE 57; RESP 16; O2SAT 98
--- NOTE | 2023-10-27 10:26 | PC.NURSE ---
Pt discharging to home, house worker is assisting in setting up the Medicaid Ride. [id number] [facility], [id number]
== END 2023-10-27 11:02 | disposition home or self-care (01) | DRG 882 ==
LOC: ER 23:55 → NP 10-26 04:02
PROVIDERS: Admitting Provider Psychiatry & Neurology Psychiatry; Emergency Provider Emergency Medicine; Visit Provider Psychiatry & Neurology Psychiatry
DX: F43.25 Adjustment disorder with mixed disturbance of emotions and conduct (principal); R45.851 Suicidal ideations; F32.A Depression, unspecified; F17.210 Nicotine dependence, cigarettes, uncomplicated; F15.21 Other stimulant dependence, in remission; F10.21 Alcohol dependence, in remission; F12.21 Cannabis dependence, in remission
CPT/HCPCS: 36415; 80053; 80306; 80307; 81003; 81015; 85025; 97150; 97165; 99285